=== PATIENT | female | born 2000 | race Caucasian/White ===

== ENCOUNTER 2020-11-18 17:36 | Inpatient (IN) | payer MEDICAID ==
[~2020-11-18 17:36] MED LIST: Acetaminophen 325 MG Tab PO PRN; Oxytocin/Normal Saline 30 UNIT/500 ML BAG IV SCH; Sodium Chloride 0.9% 10 ML Syringe FLUSH PRN
[2020-11-18] MEDS ORDERED: Tranexamic Acid 1,000 MG in Sodium Chloride 0.9% 100 ML IV PRN (19:33)
--- NOTE | 2020-11-18 19:49 | PCM.LDHP ---
<Brandi Martin - Last Filed: 11/18/20 19:57> L&D History of Present Illness - General Date of Service: 11/18/20 Admit Problem/Dx: Patient Status Order with Admit Dx/Problem 11/18/20 16:37 Patient Status [ADT] Routine Admission Diagnosis/Problem Admission Diagnosis/Problem Poor growth affecting management of mother 11/18/20 19:44: Poor growth Source of Information: Patient History Limitations: Reports: No Limitations - History of Present Illness Introduction:: Chino Treadwell is a 20 year old female with a past medical history of anemia and brain tumor who presents following clinic appointment for poor growth affecting management. Patient was seen in clinic 11/18/20 at which time it was noted that her fundal height was approximately . An ultrasound was performed and showed . Umbilical artery doppler showed . Patient reports she has had a unremarkable . She reports contractions every 2-3 minutes for quite some time. She denies leakage of fluid or vaginal bleeding. She perceives good movement. - Related Data Allergies/Adverse Reactions: Allergies Allergy/AdvReac Type Severity Reaction Status Date / Time amoxicillin Allergy Rash Verified 11/18/20 18:15 carboplatin Allergy Itching Verified 11/18/20 18:15 cisplatin Allergy Other Verified 11/18/20 18:15 grape Allergy Swelling Verified 11/18/20 18:15 Past Medical History [employer] History: Reports: Hematologic History: Reports: Anemia Oncologic (Cancer) History: Reports: Other (See Below) Other Oncologic History: pilocytic astrocytoma, left thalamus and cerebellar peduncle Social & Family History - Family History Family Medical History: No Pertinent Family History - Tobacco Use Tobacco Use Status *Q: Light Tobacco User Years of Tobacco use: 1 Packs/Tins Daily: 0.5 Used Tobacco, but Quit: Yes Month/Year Tobacco Last Used: 01/2021 Second Hand Smoke Exposure: No - Caffeine Use Caffeine Use: Reports: None - Recreational Drug Use Recreational Drug Use: No H&P Review of Systems - Review of Systems: Review Of Systems: Comprehensive ROS is negative, except as noted in HPI. Free Text/Narrative: see below General: Reports: No Symptoms HEENT: Reports: No Symptoms Pulmonary: Reports: No Symptoms Cardiovascular: Reports: No Symptoms Gastrointestinal: Reports: No Symptoms Genitourinary: Reports: No Symptoms Musculoskeletal: Reports: No Symptoms Skin: Reports: No Symptoms Psychiatric: Reports: No Symptoms Neurological: Reports: No Symptoms Hematologic/Lymphatic: Reports: No Symptoms Immunologic: Reports: No Symptoms L&D Exam - Exam Exam: See Below - Vital Signs Vital Signs: Last Vital Signs Temp 98.7 F 11/18/20 18:02 Pulse 115 H 11/18/20 18:02 Resp 18 11/18/20 18:02 BP 126/60 11/18/20 18:02 Pulse Ox Weight: 56.245 kg - OB Specific Contraction Duration (sec): 70-90 Contraction Frequency (min): 3-4.5 Contraction Intensity: Mild Movement: Active Heart Tones: Present Heart Rate (FHR) Variability: Moderate (6-25 bpm) Presentation: Vertex - De Oliveira Score De Oliveira Score Effacement: 51-70% De Oliveira Score Dilation: 3-4 cm - Exam General: Oriented HEENT: Conjunctiva Clear, EOMI Neck: Supple, Trachea Midline Lungs: Clear to Auscultation, Normal Respiratory Effort Cardiovascular: Regular Rate, Regular Rhythm GI/Abdominal Exam: Normal Bowel Sounds Rectal Exam: Normal Exam, Normal Rectal Tone Genitourinary: Normal external exam, Normal bimanual exam, Normal speculum exam Back Exam: Normal Inspection, Full Range of Motion Extremities: Normal Inspection Skin: Warm, Dry, Intact Neurological: Cranial Nerves Intact, Reflexes Equal Bilateral Psychiatric: Alert, Normal Affect, Normal Mood - Patient Data Lab Results Last 24 hrs: Laboratory Results - last 24 hr 11/18/20 11/18/20 Range/Units 17:50 18:20 WBC 9.8 (5.0-10.0) 10^3/uL RBC 3.48 L (4.2-5.4) 10^6/uL Hgb 8.5 L (12.0-16.0) g/dL Hct 27.3 L (37.0-47.0) % MCV 78.4 L (80-100) fL MCH 24.4 L (27.0-34.0) pg MCHC 31.1 L (33.0-35.0) g/dL Plt Count 258 (150-450) 10^3/uL SARS-CoV-2 RNA (SHWETA) Negative (NEGATIVE) Result Diagrams: 11/18/20 18:20 - Problem List (1) Uterine contractions SNOMED Code(s): 194116108 ICD Code: O47.9 - FALSE LABOR, UNSPECIFIED Status: Acute Current Visit: No Problem Details: -Contractions every 3-4 minutes -Given IUGR and abnormal umbilical artery doppler, will admit for induction of labor -Start oxytocin 2x2 to 20 -Recheck in 2 hours after oxytocin started -AROM if needed -GBS negative (2) Maternal anemia in , antepartum SNOMED Code(s): 710523106 ICD Code: O99.019 - ANEMIA COMPLICATING , UNSPECIFIED TRIMESTER Status: Acute Current Visit: No Problem Details: -Continue iron supplementation -Blood consent to be obtained if needed Problem List Initiated/Reviewed/Updated: Yes Orders Last 24hrs: Active Orders 24 hr Category Date Time Status Patient Status [ADT] Routine ADT 11/18/20 16:37 Active Communication Order [RC] ASDIRECTED Care 11/18/20 16:37 Active Communication Order [RC] ASDIRECTED Care 11/18/20 16:37 Active Communication Order [RC] ASDIRECTED Care 11/18/20 16:37 Active Communication Order [RC] ASDIRECTED Care 11/18/20 16:37 Active Heart Tones [RC] INTERMITTENT Care 11/18/20 19:33 Active Notify Provider Vital Signs OB [RC] ASDIRECTED Care 11/18/20 16:37 Active Notify Provider [RC] PRN Care 11/18/20 16:37 Active Notify Provider [RC] PRN Care 11/18/20 19:33 Active Notify Provider [RC] STAT Care 11/18/20 16:37 Active Up ad Amanda [RC] ASDIRECTED Care 11/18/20 19:33 Active Up ad Amanda [RC] PER UNIT ROUTINE Care 11/18/20 16:37 Active Vital Signs [RC] PER UNIT ROUTINE Care 11/18/20 19:33 Active Clear Liquid Diet [DIET] Diet 11/18/20 Dinner Active Acetaminophen [TylenoL] Med 11/18/20 16:37 Active 650 mg PO Q4H PRN Lactated Ringers [Ringers, Lactated] 1,000 ml Med 11/18/20 16:45 Active IV ASDIRECTED Oxytocin/Normal Saline [Pitocin in NS 30 UNIT/500 ML] Med 11/18/20 16:45 Active 30 unit in 500 ml IV TITRATE Sodium Chloride 0.9% [Saline Flush] Med 11/18/20 16:37 Active 10 ml FLUSH ASDIRECTED PRN Tranexamic Acid [Cyklokapron] 1,000 mg Med 11/18/20 19:33 Active Sodium Chloride 0.9% [Normal Saline] 100 ml IV ONETIME Peripheral IV Insertion Adult [OM.PC] Urgent Oth 11/18/20 16:37 Ordered Resuscitation Status Routine Resus Stat 11/18/20 19:33 Ordered Medication Orders Acetaminophen (Acetaminophen 325 Mg Tab) 650 mg PO Q4H PRN PRN Reason: Pain/Fever Lactated Ringer's (Ringers, Lactated) 1,000 mls @ 999 mls/hr IV ASDIRECTED RENO Oxytocin/Sodium Chloride (Pitocin In Ns 30 Unit/500 Ml) 30 unit in 500 mls @ 2 mls/hr IV TITRATE RENO; Protocol Tranexamic Acid 1,000 mg/ (Sodium Chloride) 110 mls @ 660 mls/hr IV ONETIME PRN PRN Reason: Bleeding Sodium Chloride (Sodium Chloride 0.9% 10 Ml Syringe) 10 ml FLUSH ASDIRECTED PRN PRN Reason: Keep Vein Open <Latha Gaines - Last Filed: 11/19/20 08:15> L&D History of Present Illness - General Admit Problem/Dx: Patient Status Order with Admit Dx/Problem 11/18/20 16:37 Patient Status [ADT] Routine Admission Diagnosis/Problem Admission Diagnosis/Problem Poor growth affecting management of mother L&D Exam - Vital Signs Vital Signs: Last Vital Signs Temp 98.8 F 11/19/20 06:00 Pulse 97 11/19/20 06:45 Resp 16 11/19/20 06:45 BP 120/62 11/19/20 06:45 Pulse Ox - Patient Data Lab Results Last 24 hrs: Laboratory Results - last 24 hr 11/18/20 11/18/20 Range/Units 17:50 18:20 WBC 9.8 (5.0-10.0) 10^3/uL RBC 3.48 L (4.2-5.4) 10^6/uL Hgb 8.5 L (12.0-16.0) g/dL Hct 27.3 L (37.0-47.0) % MCV 78.4 L (80-100) fL MCH 24.4 L (27.0-34.0) pg MCHC 31.1 L (33.0-35.0) g/dL Plt Count 258 (150-450) 10^3/uL SARS-CoV-2 RNA (SHWETA) Negative (NEGATIVE) Result Diagrams: 11/18/20 18:20 Orders Last 24hrs: Active Orders 24 hr Category Date Time Status Patient Status [ADT] Routine ADT 11/18/20 16:37 Active Communication Order [RC] ASDIRECTED Care 11/18/20 16:37 Active Communication Order [RC] ASDIRECTED Care 11/18/20 16:37 Active Communication Order [RC] ASDIRECTED Care 11/18/20 16:37 Active Communication Order [RC] ASDIRECTED Care 11/18/20 16:37 Active Heart Tones [RC] INTERMITTENT Care 11/18/20 19:33 Active Nitrous Oxide Delivery [RC] ASDIRECTED Care 11/18/20 21:16 Active Notify Provider Vital Signs OB [RC] ASDIRECTED Care 11/18/20 16:37 Active Notify Provider [RC] PRN Care 11/18/20 16:37 Active Notify Provider [RC] PRN Care 11/18/20 19:33 Active Notify Provider [RC] STAT Care 11/18/20 16:37 Active OB Discontinue Nitrous Oxide [RC] ASDIRECTED Care 11/18/20 21:16 Active Up ad Amanda [RC] ASDIRECTED Care 11/18/20 19:33 Active Vital Signs [RC] PER UNIT ROUTINE Care 11/18/20 19:33 Active Clear Liquid Diet [DIET] Diet 11/18/20 Dinner Active Acetaminophen [TylenoL] Med 11/18/20 16:37 Active 650 mg PO Q4H PRN Lactated Ringers [Ringers, Lactated] 1,000 ml Med 11/18/20 16:45 Active IV ASDIRECTED Oxytocin/Normal Saline [Pitocin in NS 30 UNIT/500 ML] Med 11/18/20 16:45 Active 30 unit in 500 ml IV TITRATE Sodium Chloride 0.9% [Saline Flush] Med 11/18/20 16:37 Active 10 ml FLUSH ASDIRECTED PRN Tranexamic Acid [Cyklokapron] 1,000 mg Med 11/18/20 19:33 Active Sodium Chloride 0.9% [Normal Saline] 100 ml IV ONETIME Peripheral IV Insertion Adult [OM.PC] Urgent Oth 11/18/20 16:37 Ordered Resuscitation Status Routine Resus Stat 11/18/20 19:33 Ordered Medication Orders Acetaminophen (Acetaminophen 325 Mg Tab) 650 mg PO Q4H PRN PRN Reason: Pain/Fever Lactated Ringer's (Ringers, Lactated) 1,000 mls @ 999 mls/hr IV ASDIRECTED [facility] Last Admin: 11/19/20 02:35 Dose: 125 mls/hr Documented by: Infusion: 11/19/20 02:35 Dose: 125 mls/hr Documented by: Admin: 11/18/20 20:10 Dose: 125 mls/hr Documented by: UZMA Oxytocin/Sodium Chloride (Pitocin In Ns 30 Unit/500 Ml) 30 unit in 500 mls @ 2 mls/hr IV TITRATE [facility]; Protocol Last Titration: 11/19/20 06:04 Dose: 6 munits/min, 6 mls/hr Documented by: Titration: 11/19/20 05:19 Dose: 5 munits/min, 5 mls/hr Documented by: Titration: 11/19/20 03:17 Dose: 4 munits/min, 4 mls/hr Documented by: Titration: 11/19/20 01:08 Dose: 7 munits/min, 7 mls/hr Documented by: Titration: 11/18/20 22:24 Dose: 6 munits/min, 6 mls/hr Documented by: Titration: 11/18/20 22:07 Dose: 8 munits/min, 8 mls/hr Documented by: Titration: 11/18/20 21:18 Dose: 6 munits/min, 6 mls/hr Documented by: Titration: 11/18/20 20:41 Dose: 4 munits/min, 4 mls/hr Documented by: Admin: 11/18/20 20:10 Dose: 2 munits/min, 2 mls/hr Documented by: UZMA Tranexamic Acid 1,000 mg/ (Sodium Chloride) 110 mls @ 660 mls/hr IV ONETIME PRN PRN Reason: Bleeding Sodium Chloride (Sodium Chloride 0.9% 10 Ml Syringe) 10 ml FLUSH ASDIRECTED PRN PRN Reason: Keep Vein Open Assessment/Plan Comment:: Induction of labor secondary to IUGR, abnormal umbilical artery doppler. Start pitocin, GBS negative. Patient does not desire pain medications. Agree with resident's assessment and plan. Latha Gaines MD
[2020-11-18] MEDS: Lactated Ringers 1,000 ML IV SCH (20:10)
[2020-11-18] MEDS ORDERED: Nalbuphine 10 MG/1 ML Vial IM ONE (21:25)
[2020-11-19] MEDS: Lactated Ringers 1,000 ML IV SCH (02:35)
[2020-11-19] MEDS ORDERED: Simethicone 80 MG Tab.Chew PO PRN (09:43)
[2020-11-19] MEDS ORDERED: Tranexamic Acid 1,000 MG in Sodium Chloride 0.9% 100 ML IV PRN (09:43)
[2020-11-19] MEDS ORDERED: Sodium Chloride 0.9% 10 ML Syringe FLUSH PRN (09:43)
[2020-11-19] MEDS ORDERED: Carboprost Tromethamine 250 MCG/1 ML Amp IM PRN (09:43)
[2020-11-19] MEDS ORDERED: Docusate Sodium 100 MG Cap PO PRN (09:43)
[2020-11-19] MEDS ORDERED: Benzocaine/Menthol 20%-0.5% Spray 78 GM Cannister TOP PRN (09:43)
[2020-11-19] MEDS ORDERED: Oxytocin 10 Units/1 ML SDV IM PRN (09:43)
[2020-11-19] MEDS ORDERED: Misoprostol 400 MCG (4 X 100 MCG TAB) RECTAL PRN (09:43)
--- NOTE | 2020-11-19 10:02 | PCM.DEL ---
<Brandi Martin - Last Filed: 11/19/20 09:51> L & D Note - General Info Date of Service: 11/19/20 - Delivery Note Labor: Augmented by Oxytocin Cervical Ripening Method: Oxytocin Delivery Outcome: Livebirth Delivery Method: Spontaneous Vaginal Delivery-Single Infant Delivery Mode: Spontaneous Presentation: Right Occiput Anterior (JESUS) Nuchal Cord: None Anesthesia Type: None Amniotic Fluid Description: Clear Episiotomy Type: None Laceration: None Placenta: Intact, Spontaneous Cord: 3 Vessels Provider: Latha Gaines Second Stage Interventions: Reports: Pushing Effectively Delivery Comments (Free Text/Narrative):: Presented for induction of labor on 11/18/20. Category 1 tracing upon admission. She was dilated to3 cm upon admission. She progressed with augmentation with oxytocin and AROM at 0304. Artificial rupture of membranes was performed at 0304 with clear fluid. She was complete at . She began pushing at approximately 0930. Delivered a liveborn female from the JESUS position. No lacerations noted. No nuchal cord. Vigorous infant with spontaneous cry. Placenta delivered spontaneously intact with a 3 vessel cord. IV Pitocin was started shortly after delivery of the placenta. EBL 150 mL. Hemostasis confirmed. Mother and infant doing well. - General Info Date of Service: 11/19/20 - Review of Systems General: Reports: No Symptoms HEENT: Reports: Glasses Pulmonary: Reports: No Symptoms Cardiovascular: Reports: No Symptoms Gastrointestinal: Reports: No Symptoms Genitourinary: Reports: No Symptoms Musculoskeletal: Reports: No Symptoms Skin: Reports: No Symptoms Neurological: Reports: No Symptoms Psychiatric: Reports: No Symptoms - Patient Data Vitals - Most Recent: Last Vital Signs Temp 98.8 F 11/19/20 06:00 Pulse 97 11/19/20 06:45 Resp 16 11/19/20 06:45 BP 120/62 11/19/20 06:45 Pulse Ox Weight - Most Recent: 56.245 kg Lab Results Last 24 Hours: Laboratory Results - last 24 hr 11/18/20 11/18/20 Range/Units 17:50 18:20 WBC 9.8 (5.0-10.0) 10^3/uL RBC 3.48 L (4.2-5.4) 10^6/uL Hgb 8.5 L (12.0-16.0) g/dL Hct 27.3 L (37.0-47.0) % MCV 78.4 L (80-100) fL MCH 24.4 L (27.0-34.0) pg MCHC 31.1 L (33.0-35.0) g/dL Plt Count 258 (150-450) 10^3/uL SARS-CoV-2 RNA (SHWETA) Negative (NEGATIVE) Med Orders - Current: Current Medications Acetaminophen (Acetaminophen 325 Mg Tab) 650 mg PO Q4H PRN PRN Reason: Pain/Fever Acetaminophen (Acetaminophen 325 Mg Tab) 650 mg PO Q6H PRN PRN Reason: Pain/Fever Benzocaine/Menthol (Benzocaine/Menthol 20%-0.5% [place] 78 Gm Cannister) 0 gm TOP Q4H PRN PRN Reason: Perineal comfort measures Carboprost Tromethamine (Carboprost Tromethamine 250 Mcg/1 Ml Amp) 250 mcg IM ASDIRECTED PRN PRN Reason: Excessive vaginal bleeding Docusate Sodium (Docusate Sodium 100 Mg Cap) 100 mg PO BID PRN PRN Reason: Constipation Ferrous Sulfate (Ferrous Sulfate 325 Mg Tab) 325 mg PO WITHBREAKFAST RENO Lactated Ringer's (Ringers, Lactated) 1,000 mls @ 999 mls/hr IV ASDIRECTED [facility] Last Admin: 11/19/20 02:35 Dose: 125 mls/hr Documented by: Oxytocin/Sodium Chloride (Pitocin In Ns 30 Unit/500 Ml) 30 unit in 500 mls @ 2 mls/hr IV TITRATE RENO; Protocol Last Titration: 11/19/20 06:04 Dose: 6 munits/min, 6 mls/hr Documented by: Tranexamic Acid 1,000 mg/ (Sodium Chloride) 110 mls @ 660 mls/hr IV ONETIME PRN PRN Reason: Bleeding Tranexamic Acid 1,000 mg/ (Sodium Chloride) 110 mls @ 660 mls/hr IV ONETIME PRN PRN Reason: Bleeding Ibuprofen (Ibuprofen 800 Mg Tab) 800 mg PO Q8H PRN PRN Reason: Cramping Misoprostol (Misoprostol 400 Mcg (4 X 100 Mcg Tab)) 800 mcg RECTAL ONETIME PRN PRN Reason: Hemorrhage Oxytocin (Oxytocin 10 Units/1 Ml Sdv) 10 unit IM ONETIME PRN PRN Reason: Bleeding Prenat Multivit/Psychological Examiner/Iron/Folic Ac ( Multivitamin With Calcium/Folic Acid/Iron Tab) 1 each PO DAILY RENO Simethicone (Simethicone 80 Mg Tab.Chew) 80 mg PO Q4H PRN PRN Reason: Gas Sodium Chloride (Sodium Chloride 0.9% 10 Ml Syringe) 10 ml FLUSH ASDIRECTED PRN PRN Reason: Keep Vein Open Sodium Chloride (Sodium Chloride 0.9% 10 Ml Syringe) 10 ml FLUSH ASDIRECTED PRN PRN Reason: Keep Vein Open Discontinued Medications Nalbuphine HCl (Nalbuphine 10 Mg/1 Ml Vial) 20 mg IM ONETIME ONE Stop: 11/18/20 21:26 - Problem List & Annotations (1) (normal spontaneous vaginal delivery) SNOMED Code(s): 45158981, 627964800 Code(s): O80 - ENCOUNTER FOR FULL-TERM UNCOMPLICATED DELIVERY Status: Acute Current Visit: Yes Annotation/Comment:: -No trauma; no lacerations noted -EBL 150 -Monitor for bleeding. (2) Maternal anemia in , antepartum SNOMED Code(s): 196538274 Code(s): O99.019 - ANEMIA COMPLICATING , UNSPECIFIED TRIMESTER Status: Acute Current Visit: No Annotation/Comment:: -Continue iron supplementation -Blood consent to be obtained if needed - Problem List Review Problem List Initiated/Reviewed/Updated: Yes - My Orders Last 24 Hours: My Active Orders 11/18/20 19:33 Up ad Amanda [RC] ASDIRECTED Vital Signs [RC] PER UNIT ROUTINE Tranexamic Acid [Cyklokapron] 1,000 mg Sodium Chloride 0.9% [Normal Saline] 100 ml IV ONETIME Resuscitation Status Routine 11/19/20 Breakfast Regular Diet [DIET] 11/19/20 09:43 Acetaminophen [TylenoL] 650 mg PO Q6H PRN Benzocaine/Menthol [Dermoplast Pain Relief 20%-0.5% [place]] See Dose Instructions TOP Q4H PRN Carboprost Tromethamine [Hemabate DS] 250 mcg IM ASDIRECTED PRN Docusate Sodium [Colace] 100 mg PO BID PRN Ibuprofen [Motrin] 800 mg PO Q8H PRN Oxytocin [Pitocin] 10 unit IM ONETIME PRN Simethicone 80 mg PO Q4H PRN Sodium Chloride 0.9% [Saline Flush] 10 ml FLUSH ASDIRECTED PRN Tranexamic Acid [Cyklokapron] 1,000 mg Sodium Chloride 0.9% [Normal Saline] 100 ml IV ONETIME miSOPROStoL [Cytotec] 800 mcg RECTAL ONETIME PRN 11/19/20 09:44 Up ad Amanda [RC] ASDIRECTED Assess Lochia [WOMSER] Per Unit Routine Assess Uterine Involution [WOMSER] Per Unit Routine Breast Pump [WOMSER] Per Unit Routine Ice Therapy [OM.PC] Per Unit Routine Perineal Care [OM.PC] Per Unit Routine Saline Lock Insert [OM.PC] Urgent Sitz Bath [OM.PC] Per Unit Routine 11/19/20 Lunch Regular Diet [DIET] 11/19/20 Dinner Regular Diet [DIET] 11/20/20 08:00 Ferrous Sulfate 325 mg PO WITHBREAKFAST 11/20/20 09:00 Vit with Ca/FA/Iron [ Plus Iron] 1 each PO DAILY 11/20/20 09:44 CBC W/O DIFF,HEMOGRAM [HEME] Routine - Plan Plan:: Induction of labor secondary to IUGR, abnormal umbilical artery doppler. Start pitocin, GBS negative. Patient does not desire pain medications. Agree with resident's assessment and plan. Latha Gaines MD <Latha Gaines - Last Filed: 11/20/20 08:56> L & D Note - Delivery Note Score 1 min: 9 Score 5 min: 9 Delivery Comments (Free Text/Narrative):: Complete around 0930 and started pushing immediately. - Patient Data Vitals - Most Recent: Last Vital Signs Temp 98.9 F 11/20/20 08:53 Pulse 78 11/20/20 08:53 Resp 16 11/20/20 08:53 BP 105/61 11/20/20 08:53 Pulse Ox 100 11/20/20 08:53 I&O - Last 24 Hours: Intake & Output 11/19/20 11/20/20 11/20/20 22:59 06:59 14:59 Intake Total 1 Balance 1 Lab Results Last 24 Hours: Laboratory Results - last 24 hr 11/19/20 11/19/20 11/20/20 Range/Units 19:40 19:40 06:15 WBC 13.6 H (5.0-10.0) 10^3/uL RBC 3.22 L (4.2-5.4) 10^6/uL Hgb 7.8 L (12.0-16.0) g/dL Hct 25.5 L (37.0-47.0) % MCV 79.2 L (80-100) fL MCH 24.2 L (27.0-34.0) pg MCHC 30.6 L (33.0-35.0) g/dL Plt Count 224 (150-450) 10^3/uL Blood Type O NEGATIVE O NEGATIVE Gel Antibody Screen Positive Rhogam Indicated Yes, baby rh pos H Med Orders - Current: Current Medications Acetaminophen (Acetaminophen 325 Mg Tab) 650 mg PO Q6H PRN PRN Reason: Pain/Fever Last Admin: 11/20/20 06:33 Dose: 650 mg Documented by: Benzocaine/Menthol (Benzocaine/Menthol 20%-0.5% [place] 78 Gm Cannister) 0 gm TOP Q4H PRN PRN Reason: Perineal comfort measures Carboprost Tromethamine (Carboprost Tromethamine 250 Mcg/1 Ml Amp) 250 mcg IM ASDIRECTED PRN PRN Reason: Excessive vaginal bleeding Docusate Sodium (Docusate Sodium 100 Mg Cap) 100 mg PO BID PRN PRN Reason: Constipation Ferrous Sulfate (Ferrous Sulfate 325 Mg Tab) 325 mg PO WITHBREAKFAST RENO Last Admin: 11/20/20 08:41 Dose: 325 mg Documented by: Lactated Ringer's (Ringers, Lactated) 1,000 mls @ 999 mls/hr IV ASDIRECTED RENO Last Admin: 11/19/20 02:35 Dose: 125 mls/hr Documented by: Oxytocin/Sodium Chloride (Pitocin In Ns 30 Unit/500 Ml) 30 unit in 500 mls @ 2 mls/hr IV TITRATE RENO; Protocol Last Titration: 11/19/20 11:30 Dose: 0 munits/min, 0 mls/hr Documented by: Tranexamic Acid 1,000 mg/ (Sodium Chloride) 110 mls @ 660 mls/hr IV ONETIME PRN PRN Reason: Bleeding Ibuprofen (Ibuprofen 800 Mg Tab) 800 mg PO Q8H PRN PRN Reason: Cramping Last Admin: 11/20/20 06:34 Dose: 800 mg Documented by: Misoprostol (Misoprostol 400 Mcg (4 X 100 Mcg Tab)) 800 mcg RECTAL ONETIME PRN PRN Reason: Hemorrhage Oxytocin (Oxytocin 10 Units/1 Ml Sdv) 10 unit IM ONETIME PRN PRN Reason: Bleeding Prenat Multivit/[place]/Iron/Folic Ac ( Multivitamin With Calcium/Folic Acid/Iron Tab) 1 each PO DAILY RENO Last Admin: 11/20/20 08:41 Dose: 1 each Documented by: Simethicone (Simethicone 80 Mg Tab.Chew) 80 mg PO Q4H PRN PRN Reason: Gas Sodium Chloride (Sodium Chloride 0.9% 10 Ml Syringe) 10 ml FLUSH ASDIRECTED PRN PRN Reason: Keep Vein Open Discontinued Medications Acetaminophen (Acetaminophen 325 Mg Tab) 650 mg PO Q4H PRN PRN Reason: Pain/Fever Nalbuphine HCl (Nalbuphine 10 Mg/1 Ml Vial) 20 mg IM ONETIME ONE Stop: 11/18/20 21:26 Last Admin: 11/19/20 17:07 Dose: Not Given Documented by: - My Orders Last 24 Hours: My Active Orders 11/19/20 19:40 ANTIBODY IDENTIFICATION [BBK] Routine MATERNAL BLEED, SCREEN [REF] Routine RH IMMUNE GLOBULIN [BBK] Routine RHOGAM, [RHIG WORKUP, ] [BBK] Routine TYPE AND SCREEN [BBK] Routine WEAK D TEST [BBK] Routine
[2020-11-19] MEDS: Acetaminophen 325 MG Tab PO PRN ×2 (10:25→19:32)
[2020-11-19] MEDS: Ibuprofen 800 MG Tab PO PRN ×2 (10:26→19:31)
[2020-11-20] MEDS: Acetaminophen 325 MG Tab PO PRN (06:33)
[2020-11-20] MEDS: Ibuprofen 800 MG Tab PO PRN (06:34)
[2020-11-20] MEDS ORDERED: Ferrous Sulfate 325 MG Tab PO SCH (08:00)
[2020-11-20] MEDS ORDERED: Prenatal Multivitamin with Calcium/Folic Acid/Iron Tab PO SCH (09:00)
--- NOTE | 2020-11-20 12:38 | PCM.PNPP ---
- General Info Date of Service: 11/20/20 Subjective Update: Patient is post day 1 s/p induced vaginal delivery. She is doing well. Her lochia is mild in degree. Pain is controlled with OTC medications. She is passing gas, no BM yet. She denies nausea, vomiting. Tolerating PO intake. She is urinating without difficulty. She is not . She would like to go home today. Functional Status: Reports: Pain Controlled - Review of Systems General: Denies: Fever, Chills HEENT: Denies: Headaches, Sinus Congestion Pulmonary: Denies: Shortness of Breath, Cough Cardiovascular: Denies: Edema, Lightheadedness Gastrointestinal: Denies: Nausea, Vomiting Skin: Denies: Rash Neurological: Denies: Headache - Patient Data Vital Signs - Most Recent: Last Vital Signs Temp 98.9 F 11/20/20 08:53 Pulse 78 11/20/20 08:53 Resp 16 11/20/20 08:53 BP 105/61 11/20/20 08:53 Pulse Ox 100 11/20/20 08:53 Weight - Most Recent: 56.245 kg I&O - Last 24 Hours: Intake & Output 11/19/20 11/20/20 11/20/20 22:59 06:59 14:59 Intake Total 1 Balance 1 Lab Results - Last 24 Hours: Laboratory Results - last 24 hr 11/19/20 11/19/20 11/20/20 Range/Units 19:40 19:40 06:15 WBC 13.6 H (5.0-10.0) 10^3/uL RBC 3.22 L (4.2-5.4) 10^6/uL Hgb 7.8 L (12.0-16.0) g/dL Hct 25.5 L (37.0-47.0) % MCV 79.2 L (80-100) fL MCH 24.2 L (27.0-34.0) pg MCHC 30.6 L (33.0-35.0) g/dL Plt Count 224 (150-450) 10^3/uL Blood Type O NEGATIVE O NEGATIVE Gel Antibody Screen Positive Rhogam Indicated Yes, baby rh pos H Med Orders - Current: Current Medications Acetaminophen (Acetaminophen 325 Mg Tab) 650 mg PO Q6H PRN PRN Reason: Pain/Fever Last Admin: 11/20/20 06:33 Dose: 650 mg Documented by: Benzocaine/Menthol (Benzocaine/Menthol 20%-0.5% [place] 78 Gm Cannister) 0 gm TOP Q4H PRN PRN Reason: Perineal comfort measures Carboprost Tromethamine (Carboprost Tromethamine 250 Mcg/1 Ml Amp) 250 mcg IM ASDIRECTED PRN PRN Reason: Excessive vaginal bleeding Docusate Sodium (Docusate Sodium 100 Mg Cap) 100 mg PO BID PRN PRN Reason: Constipation Ferrous Sulfate (Ferrous Sulfate 325 Mg Tab) 325 mg PO WITHBREAKFAST [facility] Last Admin: 11/20/20 08:41 Dose: 325 mg Documented by: Lactated Ringer's (Ringers, Lactated) 1,000 mls @ 999 mls/hr IV ASDIRECTED [facility] Last Admin: 11/19/20 02:35 Dose: 125 mls/hr Documented by: Oxytocin/Sodium Chloride (Pitocin In Ns 30 Unit/500 Ml) 30 unit in 500 mls @ 2 mls/hr IV TITRATE [facility]; Protocol Last Titration: 11/19/20 11:30 Dose: 0 munits/min, 0 mls/hr Documented by: Tranexamic Acid 1,000 mg/ (Sodium Chloride) 110 mls @ 660 mls/hr IV ONETIME PRN PRN Reason: Bleeding Ibuprofen (Ibuprofen 800 Mg Tab) 800 mg PO Q8H PRN PRN Reason: Cramping Last Admin: 11/20/20 06:34 Dose: 800 mg Documented by: Misoprostol (Misoprostol 400 Mcg (4 X 100 Mcg Tab)) 800 mcg RECTAL ONETIME PRN PRN Reason: Hemorrhage Oxytocin (Oxytocin 10 Units/1 Ml Sdv) 10 unit IM ONETIME PRN PRN Reason: Bleeding Prenat Multivit/[place]vin/Iron/Folic Ac ( Multivitamin With Calcium/Folic Acid/Iron Tab) 1 each PO DAILY [facility] Last Admin: 11/20/20 08:41 Dose: 1 each Documented by: Simethicone (Simethicone 80 Mg Tab.Chew) 80 mg PO Q4H PRN PRN Reason: Gas Sodium Chloride (Sodium Chloride 0.9% 10 Ml Syringe) 10 ml FLUSH ASDIRECTED PRN PRN Reason: Keep Vein Open Discontinued Medications Acetaminophen (Acetaminophen 325 Mg Tab) 650 mg PO Q4H PRN PRN Reason: Pain/Fever Nalbuphine HCl (Nalbuphine 10 Mg/1 Ml Vial) 20 mg IM ONETIME ONE Stop: 11/18/20 21:26 Last Admin: 11/19/20 17:07 Dose: Not Given Documented by: - Interaction Support Person: Significant Other - Recovery Exam Fundal Tone: Firm Fundal Level: At Umbilicus Fundal Placement: Midline Lochia Amount: Small Lochia Color: Rubra/Red Perineum Description: Intact, Minimal Bruising/Swelling Episiotomy/Laceration: None Bladder Status: Voiding Urinary Elimination: Voided - Exam General: Alert, Oriented HEENT: Mucous Membr. Moist/[place] Neck: Supple Lungs: Clear to Auscultation, Normal Respiratory Effort Cardiovascular: Regular Rate, Regular Rhythm GI/Abdominal Exam: Soft, No Distention Extremities: Non-Tender, No Pedal Edema Skin: Warm, Dry Neurological: No New Focal Deficit Psy/Mental Status: Alert, Normal Affect, Normal Mood - Problem List & Annotations (1) Maternal anemia in , antepartum SNOMED Code(s): 819606212 Code(s): O99.019 - ANEMIA COMPLICATING , UNSPECIFIED TRIMESTER Status: Acute Annotation/Comment:: -Continue iron supplementation -Blood consent to be obtained if needed (2) (normal spontaneous vaginal delivery) SNOMED Code(s): 98765386, 469637429 Code(s): O80 - ENCOUNTER FOR FULL-TERM UNCOMPLICATED DELIVERY Status: Acute Annotation/Comment:: -No trauma; no lacerations noted -EBL 150 -Monitor for bleeding. (3) Poor patient attendance of care SNOMED Code(s): 070640727 Code(s): O09.30 - SUPRVSN OF PREG W INSUFFICIENT ANTENAT CARE, UNSP TRIMESTER Status: Acute (4) Term SNOMED Code(s): 14143498 Code(s): Z34.90 - ENCNTR FOR SUPRVSN OF NORMAL , UNSP, UNSP TRIMESTER Status: Acute - Problem List Review Problem List Initiated/Reviewed/Updated: Yes - My Orders Last 24 Hours: My Active Orders 11/19/20 19:40 ANTIBODY IDENTIFICATION [BBK] Routine MATERNAL BLEED, SCREEN [REF] Routine RH IMMUNE GLOBULIN [BBK] Routine RHOGAM, [RHIG WORKUP, ] [BBK] Routine TYPE AND SCREEN [BBK] Routine WEAK D TEST [BBK] Routine - Plan Plan:: Patient desires 24 hour discharge. doing well so will discharge home. Significant anemia but asymptomatic. She will continue iron supplements BID. Advised pelvic rest for the next 6 weeks. Post cares discussed. Plan to follow up at 6 week post visit, control to be discussed then. Patient may be interested in tubal ligation. Latha Gaines MD
--- NOTE | 2020-11-20 12:38 | PCM.DCSUM1 ---
Discharge Summary - Hospital Course Free Text/Narrative:: Patient was admitted for induction of labor at 38w2d for IUGR and abnormal umbilical artery doppler done the same day. She was started on pitocin and underwent AROM. She progressed to complete dilation and pushed effectively for under 15 minutes. She delivered vigorous baby girl. Her post course was uncomplicated. She did have significant anemia but remained asymptomatic. She was started on iron BID. She was discharged after 24 hours and will follow up at 6 weeks for post visit. - Discharge Data Discharge Date: 11/20/20 Discharge Disposition: Home, Self-Care 01 Condition: Good - Referral to Home Health Primary Care Physician: Latha Gaines MD - Discharge Plan Home Medications: Home Meds Acetaminophen [Tylenol] 650 mg PO Q6H PRN tablet 11/20/20 [Rx] Docusate Sodium [Colace] 100 mg PO BID PRN cap 11/20/20 [Rx] Ferrous Sulfate 325 mg PO WITHBREAKFAST tablet 11/20/20 [Rx] Ibuprofen [Motrin] 800 mg PO Q8H PRN tablet 11/20/20 [Rx] Patient Handouts: Vaginal Delivery Referrals: Latha Gaines MD [Primary Care Provider] - (Please schedule 6 week appointment. ) - Discharge Summary/Plan Comment DC Time >30 min.: No Total # of Minutes for Discharge Time: Total time for discharge teaching, planning, etc, was 30 minutes. - Patient Data Vitals - Most Recent: Last Vital Signs Temp 98.9 F 11/20/20 08:53 Pulse 78 11/20/20 08:53 Resp 16 11/20/20 08:53 BP 105/61 11/20/20 08:53 Pulse Ox 100 11/20/20 08:53 Weight - Most Recent: 56.245 kg I&O - Last 24 hours: Intake & Output 11/19/20 11/20/20 11/20/20 22:59 06:59 14:59 Intake Total 1 Balance 1 Lab Results - Last 24 hrs: Laboratory Results - last 24 hr 11/19/20 11/19/20 11/20/20 Range/Units 19:40 19:40 06:15 WBC 13.6 H (5.0-10.0) 10^3/uL RBC 3.22 L (4.2-5.4) 10^6/uL Hgb 7.8 L (12.0-16.0) g/dL Hct 25.5 L (37.0-47.0) % MCV 79.2 L (80-100) fL MCH 24.2 L (27.0-34.0) pg MCHC 30.6 L (33.0-35.0) g/dL Plt Count 224 (150-450) 10^3/uL Blood Type O NEGATIVE O NEGATIVE Gel Antibody Screen Positive Rhogam Indicated Yes, baby rh pos H Med Orders - Current: Current Medications Acetaminophen (Acetaminophen 325 Mg Tab) 650 mg PO Q6H PRN PRN Reason: Pain/Fever Last Admin: 11/20/20 06:33 Dose: 650 mg Documented by: Benzocaine/Menthol (Benzocaine/Menthol 20%-0.5% [place] 78 Gm Cannister) 0 gm TOP Q4H PRN PRN Reason: Perineal comfort measures Carboprost Tromethamine (Carboprost Tromethamine 250 Mcg/1 Ml Amp) 250 mcg IM ASDIRECTED PRN PRN Reason: Excessive vaginal bleeding Docusate Sodium (Docusate Sodium 100 Mg Cap) 100 mg PO BID PRN PRN Reason: Constipation Ferrous Sulfate (Ferrous Sulfate 325 Mg Tab) 325 mg PO WITHBREAKFAST [facility] Last Admin: 11/20/20 08:41 Dose: 325 mg Documented by: Lactated Ringer's (Ringers, Lactated) 1,000 mls @ 999 mls/hr IV ASDIRECTED [place] Last Admin: 11/19/20 02:35 Dose: 125 mls/hr Documented by: Oxytocin/Sodium Chloride (Pitocin In Ns 30 Unit/500 Ml) 30 unit in 500 mls @ 2 mls/hr IV TITRATE [facility]; Protocol Last Titration: 11/19/20 11:30 Dose: 0 munits/min, 0 mls/hr Documented by: Tranexamic Acid 1,000 mg/ (Sodium Chloride) 110 mls @ 660 mls/hr IV ONETIME PRN PRN Reason: Bleeding Ibuprofen (Ibuprofen 800 Mg Tab) 800 mg PO Q8H PRN PRN Reason: Cramping Last Admin: 11/20/20 06:34 Dose: 800 mg Documented by: Misoprostol (Misoprostol 400 Mcg (4 X 100 Mcg Tab)) 800 mcg RECTAL ONETIME PRN PRN Reason: Hemorrhage Oxytocin (Oxytocin 10 Units/1 Ml Sdv) 10 unit IM ONETIME PRN PRN Reason: Bleeding Prenat Multivit/Customer Business Manager/Iron/Folic Ac ( Multivitamin With Calcium/Folic Acid/Iron Tab) 1 each PO DAILY [place] Last Admin: 11/20/20 08:41 Dose: 1 each Documented by: Simethicone (Simethicone 80 Mg Tab.Chew) 80 mg PO Q4H PRN PRN Reason: Gas Sodium Chloride (Sodium Chloride 0.9% 10 Ml Syringe) 10 ml FLUSH ASDIRECTED PRN PRN Reason: Keep Vein Open Discontinued Medications Acetaminophen (Acetaminophen 325 Mg Tab) 650 mg PO Q4H PRN PRN Reason: Pain/Fever Nalbuphine HCl (Nalbuphine 10 Mg/1 Ml Vial) 20 mg IM ONETIME ONE Stop: 11/18/20 21:26 Last Admin: 11/19/20 17:07 Dose: Not Given Documented by:
== END 2020-11-20 13:00 | disposition home or self-care (01) | DRG 807 ==
LOC: DL.OBCHECK 17:36 → DL.OB 18:39 → OBSVTOIN 11-19 09:32
PROVIDERS: ADMIT Family Medicine; ATTEND Family Medicine
PROC: 10E0XZZ Delivery of Products of Conception, External Approach (ICD-10-PCS; principal; 2020-11-19)
PROC: 10907ZC Drainage of Amniotic Fluid, Therapeutic from Products of Conception, Via Natural or Artificial Opening (ICD-10-PCS; 2020-11-19)
PROC: 3E0P7VZ Introduction of Hormone into Female Reproductive, Via Natural or Artificial Opening (ICD-10-PCS; 2020-11-19)
DX: O36.5930 Maternal care for other known or suspected poor fetal growth, third trimester, not applicable or unspecified (principal); Z37.0 Single live birth; O99.02 Anemia complicating childbirth; D64.9 Anemia, unspecified; Z20.822 Contact with and (suspected) exposure to COVID-19; O99.334 Smoking (tobacco) complicating childbirth; F17.200 Nicotine dependence, unspecified, uncomplicated; Z3A.38 38 weeks gestation of pregnancy
CPT/HCPCS: 36415; 59409; 85027; 85461; 86850; 86870; 86900; 86901; A9270-GY; J2590; J2790; J7120; U0002

== ENCOUNTER 2021-01-06 13:48 | Emergency (ER) | payer MEDICAID ==
[2021-01-06] MEDS ORDERED: Sodium Chloride 0.9% 1,000 ML IV ONE (14:28)
--- NOTE | 2021-01-06 14:46 | EDM.PDOC ---
ED HPI GENERAL MEDICAL PROBLEM - General Chief Complaint: Headache Stated Complaint: NAUSEA, HEADACHE Time Seen by Provider: 01/06/21 14:35 Source of Information: Reports: Patient History Limitations: Reports: No Limitations - History of Present Illness INITIAL COMMENTS - FREE TEXT/NARRATIVE: This 20 yo female patient reports to the ED with a 3 day history of frequent headaches, fevers (up to 104 at home), chills and dysuria. The patient reports she has been having symptoms since she changed control medications. The patient also reports her son has been sick over the past week. The patient reports she had been taking Tylenol and ibuprofen with little to no symptom relief. The patient did call her primary care facility, but was encouraged to come to the ED for further evaluation and treatment. Onset Date: 01/04/21 Duration: Constant, Getting Worse Location: Reports: Head, Abdomen Quality: Reports: Other Severity: Moderate Improves with: Reports: None Worsens with: Reports: None Context: Reports: Other Associated Symptoms: Reports: No Other Symptoms Treatments TREER: Reports: Acetaminophen, NSAIDS - Related Data Allergies Allergy/AdvReac Type Severity Reaction Status Date / Time amoxicillin Allergy Rash Verified 01/06/21 14:01 carboplatin Allergy Itching Verified 01/06/21 14:01 cisplatin Allergy Other Verified 01/06/21 14:01 grape Allergy Swelling Verified 01/06/21 14:01 Home Meds: Home Meds Acetaminophen [Tylenol] 650 mg PO Q6H PRN tablet 11/20/20 [Rx] Docusate Sodium [Colace] 100 mg PO BID PRN cap 11/20/20 [Rx] Ferrous Sulfate 325 mg PO WITHBREAKFAST tablet 11/20/20 [Rx] Ibuprofen [Motrin] 800 mg PO Q8H PRN tablet 11/20/20 [Rx] 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 - Physical Exam Exam: See Below Exam Limited By: No Limitations General Appearance: Alert, WD/WN, Moderate Distress Eye Exam: Bilateral Eye: EOMI, Normal Inspection, PERRL Ears: Normal External Exam, Normal Canal, Hearing Grossly Normal, Normal TMs Nose: Normal Inspection, Normal Mucosa, No Blood Throat/Mouth: Normal Inspection, Normal Lips, Normal Teeth, Normal Gums, Normal Oropharynx, Normal Voice, No Airway Compromise Head Exam: Atraumatic, Normocephalic Neck: Normal Inspection, Supple, Non-Tender, Full Range of Motion Respiratory/Chest: No Respiratory Distress, Lungs Clear, Normal Breath Sounds, No Accessory Muscle Use, Chest Non-Tender Cardiovascular: Normal Peripheral Pulses, Regular Rate, Rhythm, No Edema, No Gallop, No JVD, No Murmur, No Rub GI/Abdominal: Normal Bowel Sounds, Soft, Non-Tender, No Organomegaly, No Distention, No Abnormal Bruit, No Mass (Female) Exam: Deferred Rectal (Female) Exam: Deferred Neuro Exam (Abbreviated): Alert, Oriented, CN II-XII Intact, Normal Cognition, Normal Gait, Normal Reflexes, No Motor/Sensory Deficits Back Exam: Normal Inspection, Full Range of Motion, NT Extremities: Normal Inspection, Normal Range of Motion, Non-Tender, No Pedal Edema, Normal Capillary Refill Psychiatric: Normal Affect, Normal Mood Skin Exam: Warm, Dry, Intact, Normal Color, No Rash Course - Vital Signs Last Recorded V/S: Last Vital Signs Temp 101.1 F H 01/06/21 14:05 Pulse 124 H 01/06/21 14:05 Resp 16 01/06/21 14:05 BP 111/75 01/06/21 14:05 Pulse Ox 99 01/06/21 14:05 - Orders/Labs/Meds Orders: Active Orders 24 hr Category Date Time Status CULTURE URINE [RM] Stat Lab 01/06/21 14:52 Received Labs: Laboratory Tests 01/06/21 01/06/21 01/06/21 Range/Units 14:40 14:40 14:49 WBC 9.3 (5.0-10.0) 10^3/uL RBC 4.59 (4.2-5.4) 10^6/uL Hgb 11.6 L D (12.0-16.0) g/dL Hct 35.6 L (37.0-47.0) % MCV 77.6 L (80-100) fL MCH 25.3 L (27.0-34.0) pg MCHC 32.6 L (33.0-35.0) g/dL Plt Count 237 (150-450) 10^3/uL Neut % (Auto) 84.0 H (42.2-75.2) % Lymph % (Auto) 8.7 L (20.5-50.1) % Lewis % (Auto) 6.7 (2-8) % Eos % (Auto) 0.4 L (1.0-3.0) % Baso % (Auto) 0.2 (0.0-1.0) % Sodium 138 (136-145) mmol/L Potassium 3.2 L (3.5-5.1) mmol/L Chloride 101 (98-107) mmol/L Carbon Dioxide 27 (21-32) mmol/L Anion Gap 13.2 H (7-13) mEq/L BUN 6 L (7-18) mg/dL Creatinine 0.78 (0.55-1.02) mg/dL Est Cr Clr Drug Dosing 84.03 mL/min Estimated GFR (MDRD) > 60 BUN/Creatinine Ratio 7.7 (No establ ref range) Glucose 104 H (70-99) mg/dL Calcium 9.0 (8.5-10.1) mg/dL Total Bilirubin 0.5 (0.2-1.0) mg/dL AST 12 L (15-37) U/L ALT 16 (14-59) U/L Alkaline Phosphatase 103 (46-116) U/L Total Protein 8.1 (6.4-8.2) g/dL Albumin 3.7 (3.4-5.0) g/dL Globulin 4.4 Albumin/Globulin Ratio 0.8 Urine Color (YELLOW) Urine Appearance (CLEAR) Urine pH (5.0-9.0) Ur Specific Lynn (1.005-1.030) Urine Protein (NEGATIVE) Urine Glucose (UA) (NEGATIVE) Urine Ketones (NEGATIVE) Urine Occult Blood (NEGATIVE) Urine Nitrite (NEGATIVE) Urine Bilirubin (NEGATIVE) Urine Urobilinogen (0.2-1.0) mg/dL Ur Leukocyte Esterase (NEGATIVE) Urine RBC (0-5) /HPF Urine WBC (0-5/HPF) /HPF Ur Epithelial Cells (NOT SEEN) /HPF Urine Bacteria (0-FEW/HPF) /HPF Urine Mucus (NOT SEEN) /LPF Urine HCG, Qual Urine Opiates Screen (NEGATIVE) Ur Oxycodone Screen (NEGATIVE) Urine Methadone Screen (NEGATIVE) Ur Barbiturates Screen (NEGATIVE) U Tricyclic Antidepress (NEGATIVE) Ur Phencyclidine Scrn (NEGATIVE) Ur Amphetamine Screen (NEGATIVE) U Methamphetamines Scrn (NEGATIVE) Urine MDMA Screen (NEGATIVE) U Benzodiazepines Scrn (NEGATIVE) Urine Cocaine Screen (NEGATIVE) U Marijuana (THC) Screen (NEGATIVE) Influenza Type A RNA Negative (NEGATIVE) Influenza Type B RNA Negative (NEGATIVE) SARS-CoV-2 RNA (SHWETA) Negative (NEGATIVE) 01/06/21 01/06/21 01/06/21 Range/Units 14:52 14:52 14:52 WBC (5.0-10.0) 10^3/uL RBC (4.2-5.4) 10^6/uL Hgb (12.0-16.0) g/dL Hct (37.0-47.0) % MCV (80-100) fL MCH (27.0-34.0) pg MCHC (33.0-35.0) g/dL Plt Count (150-450) 10^3/uL Neut % (Auto) (42.2-75.2) % Lymph % (Auto) (20.5-50.1) % Lewis % (Auto) (2-8) % Eos % (Auto) (1.0-3.0) % Baso % (Auto) (0.0-1.0) % Sodium (136-145) mmol/L Potassium (3.5-5.1) mmol/L Chloride (98-107) mmol/L Carbon Dioxide (21-32) mmol/L Anion Gap (7-13) mEq/L BUN (7-18) mg/dL Creatinine (0.55-1.02) mg/dL Est Cr Clr Drug Dosing mL/min Estimated GFR (MDRD) BUN/Creatinine Ratio (No establ ref range) Glucose (70-99) mg/dL Calcium (8.5-10.1) mg/dL Total Bilirubin (0.2-1.0) mg/dL AST (15-37) U/L ALT (14-59) U/L Alkaline Phosphatase (46-116) U/L Total Protein (6.4-8.2) g/dL Albumin (3.4-5.0) g/dL Globulin Albumin/Globulin Ratio Urine Color Yellow (YELLOW) Urine Appearance Slightly cloudy (CLEAR) Urine pH 7.0 (5.0-9.0) Ur Specific Lynn 1.025 (1.005-1.030) Urine Protein 30 H (NEGATIVE) Urine Glucose (UA) Negative (NEGATIVE) Urine Ketones Negative (NEGATIVE) Urine Occult Blood Trace-intact H (NEGATIVE) Urine Nitrite Negative (NEGATIVE) Urine Bilirubin Negative (NEGATIVE) Urine Urobilinogen 4.0 H (0.2-1.0) mg/dL Ur Leukocyte Esterase Large H (NEGATIVE) Urine RBC 0-5 (0-5) /HPF Urine WBC >100 H (0-5/HPF) /HPF Ur Epithelial Cells Moderate H (NOT SEEN) /HPF Urine Bacteria Many H (0-FEW/HPF) /HPF Urine Mucus Many H (NOT SEEN) /LPF Urine HCG, Qual Negative Urine Opiates Screen Negative (NEGATIVE) Ur Oxycodone Screen Negative (NEGATIVE) Urine Methadone Screen Negative (NEGATIVE) Ur Barbiturates Screen Negative (NEGATIVE) U Tricyclic Antidepress Negative (NEGATIVE) Ur Phencyclidine Scrn Negative (NEGATIVE) Ur Amphetamine Screen Negative (NEGATIVE) U Methamphetamines Scrn Negative (NEGATIVE) Urine MDMA Screen Negative (NEGATIVE) U Benzodiazepines Scrn Negative (NEGATIVE) Urine Cocaine Screen Negative (NEGATIVE) U Marijuana (THC) Screen Negative (NEGATIVE) Influenza Type A RNA (NEGATIVE) Influenza Type B RNA (NEGATIVE) SARS-CoV-2 RNA (SHWETA) (NEGATIVE) Meds: Medications Discontinued Medications Generic Name Dose Route Start Last Admin Trade Name Freq PRN Reason Stop Dose Admin Cephalexin 500 mg 01/06/21 15:59 01/06/21 16:06 Cephalexin 500 Mg Cap PO 01/06/21 16:00 500 mg ONETIME ONE Administration Sodium Chloride 1,000 mls @ 999 mls/hr 01/06/21 14:28 01/06/21 15:31 Normal Saline IV 01/06/21 15:28 999 mls/hr .BOLUS ONE Administration Ketorolac Tromethamine 30 mg 01/06/21 15:57 01/06/21 16:07 Ketorolac 30 Mg/Ml Sdv IVPUSH 01/06/21 15:58 30 mg ONETIME ONE Administration Departure - Departure Time of Disposition: 16:31 Disposition: Home, Self-Care 01 Condition: Fair Clinical Impression: UTI (urinary tract infection) Qualifiers: Urinary tract infection type: site unspecified Hematuria presence: with hematuria Qualified Code(s): N39.0 - Urinary tract infection, site not specified; R31.9 - Hematuria, unspecified Migraine Qualifiers: Migraine type: unspecified Status migrainosus presence: without status migrainosus Intractability: intractable Qualified Code(s): G43.919 - Migraine, unspecified, intractable, without status migrainosus - Discharge Information *PRESCRIPTION DRUG MONITORING PROGRAM REVIEWED*: Not Applicable *COPY OF PRESCRIPTION DRUG MONITORING REPORT IN PATIENT VIRGIL: Not Applicable Instructions: Migraine Headache, [id number], Urinary Tract Infection, Adult, [id number] Forms: ED Department Discharge Care Plan Goals: The patient was advised of the examination and lab results during the visit. The patient was given an oral dose of Keflex, an IV dose of Toradol and IV fluids during the visit. The patient was discharged with a script for Keflex (500 mg) #10 to take 1 by mouth 2 times per day for 5 days. If the patient has any additional symptoms or concerns, the patient should either return to the emergency department or visit her primary care facility. Sepsis Event Note (ED) - Evaluation Sepsis Screening Result: No Definite Risk - Focused Exam Vital Signs: Vital Signs Temp Pulse Resp BP Pulse Ox 01/06/21 14:05 101.1 F H 124 H 16 111/75 99 - My Orders Last 24 Hours: My Active Orders 01/06/21 14:52 CULTURE URINE [RM] Stat - Assessment/Plan Last 24 Hours: My Active Orders 01/06/21 14:52 CULTURE URINE [RM] Stat
[2021-01-06 15:09] LABS: ANION GAP 13.2 mEq/L (7-13); CHLORIDE,CL 101 mmol/L (98-107); SODIUM,NA 138 mmol/L (136-145)
[2021-01-06 15:40] LABS: CORONAVIRUS COVID-19 NAA NEGATIVE (NEGATIVE)
[2021-01-06 15:56] LABS: AMPHETAMINES,URINE NEGATIVE (NEGATIVE); BARBITURATES,URINE NEGATIVE (NEGATIVE); BENZODIAZEPINE,URINE NEGATIVE (NEGATIVE); MDMA (ECSTASY), URINE NEGATIVE (NEGATIVE); METHADONE,URINE NEGATIVE (NEGATIVE); METHAMPHETAMINES,URINE NEGATIVE (NEGATIVE); OPIATES,URINE NEGATIVE (NEGATIVE); OXYCODONE,URINE NEGATIVE (NEGATIVE); PHENCYCLIDINE,URINE NEGATIVE (NEGATIVE); TCA,URINE NEGATIVE (NEGATIVE)
[2021-01-06] MEDS ORDERED: Ketorolac 30 MG/ML SDV IVPUSH ONE (15:57)
[2021-01-06] MEDS ORDERED: Cephalexin 500 MG Cap PO ONE (15:59)
== END 2021-01-06 16:40 | disposition home or self-care (01) ==
LOC: DL.ED 13:48
DX: G43.919 Migraine, unspecified, intractable, without status migrainosus (principal); N39.0 Urinary tract infection, site not specified; R31.9 Hematuria, unspecified; Z88.0 Allergy status to penicillin; Z91.018 Allergy to other foods; Z88.8 Allergy status to other drugs, medicaments and biological substances; Z20.822 Contact with and (suspected) exposure to COVID-19
CPT/HCPCS: 0240U; 36415; 80053; 80305-QW; 81001; 81025; 85025; 87086; 87088; 87186; 96374; 99284-25; A9270-GY; J1885; J7030

== ENCOUNTER 2022-01-07 03:05 | Emergency (ER) | payer MEDICAID ==
[2022-01-07] MEDS: Lidocaine 1% 10 ML MDV INJECT ONE (03:19)
[2022-01-07] MEDS ORDERED: Bacitracin Oint 1 GM U/D Packet TOP ONE (03:42)
== END 2022-01-07 03:50 | disposition home or self-care (01) ==
LOC: DL.ED 03:05
DX: S61.214A Laceration without foreign body of right ring finger without damage to nail, initial encounter (principal); Z88.0 Allergy status to penicillin; Z91.018 Allergy to other foods; Z88.8 Allergy status to other drugs, medicaments and biological substances; Z86.16 Personal history of COVID-19; W25.XXXA Contact with sharp glass, initial encounter
CPT/HCPCS: 12001; 99282